=== PATIENT | male | born 1970 | race Caucasian/White ===

== ENCOUNTER 2017-06-26 16:55 | Emergency (ER) | payer OTHER ==
[~2017-06-26] VITALS: Ht 182.9 cm; Wt 68.4 kg
[2017-06-26 18:24] LABS: HEMATOCRIT 44.6 % (39.2-51.8); HEMOGLOBIN 14.8 g/dL (13.7-18.0); WHITE BLOOD COUNT 8.4 x10^3/uL (3.4-10)
[2017-06-26 18:35] LABS: BLOOD UREA NITROGEN 12 mg/dL (7-18)
[2017-06-26 18:39] LABS: ASPARTATE AMINO TRANSFERASE 16 U/L (15-37)
[2017-06-26 18:44] LABS: PATH.CAST-FLAG NOT PRESENT; SPERM-FLAG NOT PRESENT; SRC-FLAG NOT PRESENT; XTAL-FLAG NOT PRESENT; YLC-FLAG NOT PRESENT
[2017-06-26 21:10] VITALS: BP 129/74
== END 2017-06-26 21:13 | disposition home or self-care (01) ==
LOC: ED 20:37
DX: R10.84 Generalized abdominal pain (principal); R78.89 Finding of other specified substances, not normally found in blood
CPT/HCPCS: 36415; 74177; 80053; 81001; 83690; 85025; 87077; 87086; 99285

== ENCOUNTER 2019-01-06 18:35 | Emergency (ER) | payer OTHER ==
[~2019-01-06] VITALS: Ht 182.9 cm; Wt 64.9 kg
--- NOTE | 2019-01-06 19:46 | NUR ---
WOUND DRESSED PER PA ORDER. AWAITING DC PAPERWORK AT THIS TIME.
[2019-01-06 20:02] VITALS: BP 131/74
== END 2019-01-06 20:08 | disposition home or self-care (01) ==
LOC: ED 19:56
DX: L02.411 Cutaneous abscess of right axilla (principal); L73.2 Hidradenitis suppurativa; F17.200 Nicotine dependence, unspecified, uncomplicated
CPT/HCPCS: 10060; 10160; 99283; 99284